=== PATIENT | female | born 1960 ===

== ENCOUNTER 2020-01-26 18:43 | Emergency (ER) | payer MEDICAID ==
[~2020-01-26] VITALS: Ht 175.3 cm; Wt 63.2 kg
[2020-01-26] MEDS ORDERED: LEVO125T95 PO (19:24)
[2020-01-26] MEDS ORDERED: QUET25TA PO (19:24)
[2020-01-26 20:33] VITALS: BP 130/68
== END 2020-01-26 22:00 | disposition home or self-care (01) ==
LOC: EMS 18:45
DX: R05 Cough (principal); R11.0 Nausea; J34.89 Other specified disorders of nose and nasal sinuses; J45.909 Unspecified asthma, uncomplicated; F17.210 Nicotine dependence, cigarettes, uncomplicated; Z20.828 Contact with and (suspected) exposure to other viral communicable diseases; Z88.5 Allergy status to narcotic agent
CPT/HCPCS: 99283; 99406; U0003